=== PATIENT | female | born 1970 | race Caucasian/White ===

== ENCOUNTER 2016-10-23 06:43 | Day surgery (SDC) | payer OTHER ==
[2016-10-23] MEDS ORDERED: FUROSEMIDE 40 MG TABLET PO ONE (10:00)
[2016-10-23] MEDS ORDERED: IV NS 0.9% 250 ML IV ONE (11:29)
[2016-10-23] MEDS ORDERED: BLOOD IV SET 1 EA INFUS.SET MC ONE ×2 (11:30→11:32)
[2016-10-23] MEDS ORDERED: NEEDLELESS EST SET LARGE BORE 1 EA INFUS.SET MC ONE (11:30)
[2016-10-23 11:38] LABS: HEMOGLOBIN 7.7 g/dL (11.5-14.8)
== END 2016-10-23 11:45 | disposition home or self-care (01) ==
LOC: DS 06:43
PROVIDERS: ATTEND Surgery
DX: D64.89 Other specified anemias (principal)
CPT/HCPCS: 36415; 36430; 85027; 86850; 86921; J7050; P9016 ×2